=== PATIENT | male | born 1980 | race Caucasian/White ===

== ENCOUNTER 2024-11-14 13:03 | Inpatient (IN) | payer OTHER ==
[~2024-11-14] VITALS: Ht 175.3 cm; Wt 97.5 kg
[2024-11-14 13:30] LABS: PLATELET COUNT (AUTO) 241 K/uL (152-348); RED BLOOD CELL COUNT(AUTO) 4.50 MIL/uL (4.06-5.63); RED CELL DISTRIBUTION WIDTH 14.4 % (12.1-16.2); WHITE BLOOD COUNT (AUTO) 17.0 K/uL (3.6-10.2)
[2024-11-14 13:43] LABS: ASPARTATE AMINOTRANSFERASE 32 U/L (15-37); CREATININE 1.3 mg/dL (0.6-1.3); SODIUM SERUM 139 mmol/L (136-145); TOTAL PROTEIN, SERUM 6.7 g/dL (6.4-8.2); UREA NITROGEN, BLOOD 22 mg/dL (7-18)
[2024-11-14] MEDS ORDERED: NIMO30CA5 PO (14:02)
[2024-11-14] MEDS ORDERED: LEVE750T4 PO (14:04)
[2024-11-14] MEDS: IV NORMAL SALINE 1000 ML BAG IV ONE (14:26)
[2024-11-14] MEDS ORDERED: ACETAMINOPHEN 325 MG TABLET PO PRN (18:00)
[2024-11-14] MEDS ORDERED: ONDANSETRON 4 MG/2 ML VIAL IV PRN (18:00)
[2024-11-14 19:38] VITALS: BP 122/56; TEMP 98.9; O2SAT 98
[2024-11-14] MEDS: IV NS 1000 ML 1,000 ML IV PRN (20:58)
[2024-11-14] MEDS: ENOXAPARIN SODIUM 40 MG/0.4 ML DISP.SYRIN SQ SCH (21:14)
[2024-11-15 06:03] VITALS: BP 97/58; TEMP 98.5; O2SAT 98
[2024-11-15 07:12] LABS: PLATELET COUNT (AUTO) 195 K/uL (152-348); RED BLOOD CELL COUNT(AUTO) 3.69 MIL/uL (4.06-5.63); RED CELL DISTRIBUTION WIDTH 14.5 % (12.1-16.2); WHITE BLOOD COUNT (AUTO) 13.1 K/uL (3.6-10.2)
[2024-11-15 07:20] LABS: CREATININE 0.7 mg/dL (0.6-1.3); SODIUM SERUM 142.0 mmol/L (136-145); UREA NITROGEN, BLOOD 21.0 mg/dL (7-18)
[2024-11-15 07:29] VITALS: BP 130/82; TEMP 98.9; O2SAT 98
[2024-11-15] MEDS ORDERED: ATOR10TA PO (10:37)
[2024-11-15] MEDS ORDERED: CHLO473M7 PO (10:37)
[2024-11-15] MEDS ORDERED: LOSA100T31 PO (10:37)
[2024-11-15] MEDS ORDERED: IBUP-1957 PO (10:40)
[2024-11-15] MEDS ORDERED: AMOX500T2 PO (10:40)
[2024-11-15 10:49] VITALS: BP 159/74; TEMP 97.9; O2SAT 97
[2024-11-15] MEDS ORDERED: IBUPROFEN 800 MG TABLET PO PRN (11:15)
[2024-11-15 12:20] VITALS: BP 159/74
[2024-11-15] MEDS: LOSARTAN POTASSIUM 50 MG TABLET PO SCH (12:20)
[2024-11-15] MEDS: ATORVASTATIN 10 MG TABLET PO SCH (12:21)
[2024-11-15] MEDS: CHLORHEXIDINE GLUCONATE 15 ML MOUTHWASH MM SCH (12:21)
[2024-11-15] MEDS ORDERED: AMOXICILLIN-CLAVUL 500-125MG TABLET PO SCH (22:00)
== END 2024-11-15 14:00 | disposition home or self-care (01) | DRG 917 ==
LOC: ER 13:03 → TELE3 16:52
PROVIDERS: ADMIT Nurse Practitioner Acute Care; ATTEND Nurse Practitioner Acute Care
DX: T41 Poisoning by, adverse effect of and underdosing of anesthetics and therapeutic gases (principal); G92.8 Other toxic encephalopathy; R09.2 Respiratory arrest; D68.59 Other primary thrombophilia; N17.9 Acute kidney failure, unspecified; J95.4 Chemical pneumonitis due to anesthesia; Y92.530 Ambulatory surgery center as the place of occurrence of the external cause; F15.11 Other stimulant abuse, in remission; G40.909 Epilepsy, unspecified, not intractable, without status epilepticus; I95.81 Postprocedural hypotension; E66.9 Obesity, unspecified; Z68.31 Body mass index [BMI] 31.0-31.9, adult
CPT/HCPCS: 36415; 71045; 83735; 84100; 84484; 85025; 85730; 86850; 86900; 86901; 93307; A4663; G0378; J1650; J1956; J7040